=== PATIENT | male | born 1995 | race Caucasian/White ===

== ENCOUNTER 2018-11-23 20:46 | Emergency (ER) | payer SELFPAY ==
[~2018-11-23] VITALS: Ht 170.2 cm; Wt 54.4 kg
[2018-11-23 21:06] VITALS: BP 123/78
== END 2018-11-23 22:04 | disposition home or self-care (01) ==
LOC: ER 20:51
DX: L03.115 Cellulitis of right lower limb (principal)
CPT/HCPCS: Z7502